=== PATIENT | female | born 1950 | race Hispanic/Latino ===

== ENCOUNTER 2018-05-03 14:16 | Inpatient (IN) | payer MEDICARE ==
[~2018-05-03] VITALS: Ht 154.9 cm; Wt 124.3 kg
[2018-05-03] MEDS ORDERED: FUROSEMIDE INJ 10 MG/ML 2 ML VIAL IV PRN (14:45)
[2018-05-03] MEDS ORDERED: SODIUM CHLORIDE 0.9% 250ML 250 ML IV ONE (14:45)
[2018-05-03 15:27] VITALS: BP 134/63
[2018-05-03 15:28] VITALS: BP 134/63
[2018-05-03 15:34] VITALS: BP 134/63
[2018-05-03 16:16] LABS: BASOPHILS % 0.2 % (0.0-1.0); EOSINOPHILS # (AUTO) 0.3 (0.0-0.4); EOSINOPHILS % 1.5 % (0.0-6.0); LYMPHOCYTES # (AUTO) 4.8 (1.0-3.2); LYMPHOCYTES % 28.2 % (18.0-39.1); MEAN CORPUSCULAR HEMOGLOBIN 23.6 pg (28-32); MEAN CORPUSCULAR HGB CONC 28.2 g/dL (31-35); MEAN CORPUSCULAR VOLUME 83.7 fL (81-99); MONOCYTES # (AUTO) 0.9 (0.2-0.8); MONOCYTES % 5.3 % (4.4-11.3); PLATELET COUNT 502 x10e3/uL (140-360); RED BLOOD COUNT 2.03 x10e6/uL (3.6-5.1); RED CELL DISTRIBUTION WIDTH 16.5 % (11.7-14.4)
[2018-05-03 16:25] LABS: CLARITY,URINE SL CLOUDY (CLEAR); COLOR,URINE YELLOW (YELLOW)
[2018-05-03 16:26] LABS: BILIRUBIN,URINE NEGATIVE (NEGATIVE); KETONES,URINE NEGATIVE (NEGATIVE); LEUKOCYTE ESTERASE ,URINE 2+ (NEGATIVE); NITRITE,URINE NEGATIVE (NEGATIVE); PROTEIN,URINE DIPSTICK 2+ (NEGATIVE); URINE UROBILINOGEN 0.2 mg/dL (0.2 - 1)
[2018-05-03 16:26] LABS: HEMOGLOBIN 4.8 g/dL (12.0-16.0)
[2018-05-03 16:38] LABS: ALBUMIN/GLOBULIN RATIO 0.7 (0.8-2.0); ANION GAP 17.7 mmol/L (8-16); CALCIUM 9.1 mg/dL (8.4-10.2); CREATININE, SERUM 1.16 mg/dL (0.57-1.11); POTASSIUM 3.7 mmol/L (3.5-5.1)
[2018-05-03 16:57] LABS: THYROID STIMULATING HORMONE 2.508 uIU/mL (0.350-4.940)
[2018-05-03 17:01] LABS: EPITHELIAL CELLS,URINE MANY /LPF; TRANSITIONAL EPI CELLS,URINE MANY
[2018-05-03 17:02] LABS: BACTERIA,URINE MODERATE /HPF; RBC,URINE 21-50 /HPF (0-5); WBC,URINE (MAN) >50 /HPF (0-5)
--- NOTE | 2018-05-03 17:55 | Diagnostic Imaging Report ---
EXAMINATION: PA and lateral views of the chest. COMPARISON: None CLINICAL HISTORY: Anemia, shortness of breath, DISCUSSION: Exam limited by soft tissue attenuation from patient's body habitus Lines/tubes: None. Lungs: Lungs are well-inflated. No definite consolidation. Pleura: There is no pleural effusion or pneumothorax. Heart and mediastinum: Enlarged cardiac silhouette. Central pulmonary venous congestion. Bones and soft tissues: No acute bony abnormalities. Degenerative changes in the thoracic spine IMPRESSION: Enlarged cardiac silhouette and central pulmonary venous congestion. No definite consolidation or effusion. Signed by: Dr. Wojciech Hernandez M.D. on 05/03/2018 5:52 PM
[2018-05-03] MEDS ORDERED: SODIUM CHLORIDE 0.9% 250ML 250 ML ONE ×2 (18:03→21:47)
[2018-05-03 19:15] VITALS: BP 132/58
[2018-05-03 19:51] LABS: EOSINOPHILS % (MANUAL) 1 % (0-7); LYMPHOCYTES % (MANUAL) 21 % (19-48); MONOCYTES % (MANUAL) 4 % (3.4-9.0); NEUTROPHILS % (MANUAL) 74 % (40-74)
[2018-05-03 19:53] LABS: POIKILOCYTOSIS SLIGHT
[2018-05-03 19:54] LABS: PLATELET ESTIMATE MODERATELY INCREASED; PLATELET MORPHOLOGY COMMENT FEW LARGE; POLYCHROMASIA FEW
[2018-05-03 21:00] VITALS: BP 132/58
[2018-05-03 22:33] VITALS: BP 123/55
[2018-05-04] VITALS: BP 118/42
[2018-05-04 05:05] LABS: BASOPHILS % 0.2 % (0.0-1.0); EOSINOPHILS # (AUTO) 0.2 (0.0-0.4); EOSINOPHILS % 1.9 % (0.0-6.0); LYMPHOCYTES # (AUTO) 2.5 (1.0-3.2); LYMPHOCYTES % 22.5 % (18.0-39.1); MEAN CORPUSCULAR HEMOGLOBIN 25.7 pg (28-32); MEAN CORPUSCULAR HGB CONC 31.2 g/dL (31-35); MEAN CORPUSCULAR VOLUME 82.2 fL (81-99); MONOCYTES # (AUTO) 0.7 (0.2-0.8); MONOCYTES % 6.1 % (4.4-11.3); NEUTROPHILS # (AUTO) 7.7 (2.1-6.9); NEUTROPHILS % 68.7 % (38.7-80.0); RED CELL DISTRIBUTION WIDTH 15.9 % (11.7-14.4)
[2018-05-04 05:17] LABS: HEMATOCRIT 18.9 % (34.2-44.1); HEMOGLOBIN 5.9 g/dL (12.0-16.0); PLATELET COUNT 371 x10e3/uL (140-360)
[2018-05-04 05:30] LABS: ALBUMIN 2.7 g/dL (3.5-5.0); ALBUMIN/GLOBULIN RATIO 0.8 (0.8-2.0); ALKALINE PHOSPHATASE 91 IU/L (40-150); ANION GAP 12.7 mmol/L (8-16); BLOOD UREA NITROGEN 16 mg/dL (7-26); BUN/CREATININE RATIO 14 (6-25); CALCIUM 8.7 mg/dL (8.4-10.2); CARBON DIOXIDE 23 mmol/L (22-29); CHLORIDE 106 mmol/L (98-107); CREATININE, SERUM 1.11 mg/dL (0.57-1.11); EST GLOMERULAR FILTRATION RATE 49 ML/MIN (60-); GLUCOSE 105 mg/dL (74-118); POTASSIUM 3.7 mmol/L (3.5-5.1); SODIUM 138 mmol/L (136-145)
[2018-05-04] MEDS ORDERED: SODIUM CHLORIDE 0.9% 250ML 250 ML IV ONE (05:30)
[2018-05-04] MEDS ORDERED: FUROSEMIDE INJ 10 MG/ML 4 ML VIAL IV ONE (05:45)
[2018-05-04 05:52] LABS: ALANINE AMINOTRANSFERASE < 6 IU/L (0-55)
[2018-05-04 08:00] VITALS: BP 116/49
[2018-05-04] MEDS: LOSARTAN POTASSIUM 100 MG TAB PO SCH (08:15)
[2018-05-04] MEDS ORDERED: SODIUM CHLORIDE 0.9% 250ML 250 ML ONE ×2 (08:41→13:22)
[2018-05-04] MEDS ORDERED: METFORMIN HCL 500 MG TAB CR PO ONE (09:00)
[2018-05-04] MEDS ORDERED: METOPROLOL SUCCINATE 50 MG TAB XL PO SCH (09:00)
[2018-05-04] MEDS: TRAMADOL HCL 50 MG TAB PO PRN (11:16)
[2018-05-04] MEDS: CEFTRIAXONE SOD 1 GM VIAL IV SCH (11:51)
--- NOTE | 2018-05-04 11:51 | History and Physical ---
This 67-year-old female patient presented with complaint of severe vaginal bleeding, blood clots and severe anemia. HISTORY OF PRESENT ILLNESS: Ms. Maria E Ware is a 67-year-old female patient with recent history of acute DVT in January. She was placed on Xarelto. The patient had presented to the office with complaint of dizziness and weakness. Blood test was done, and the patient was found to have severe anemia. The patient also had mentioned about passing blood clots and vaginal bleeding since the patient has started Xarelto. The patient had weakness, dizziness, bloody oozing. The patient also complained of knee pain. ALLERGIES: NO KNOWN DRUG ALLERGIES. The patient also has history of lymphedema and knee arthritis. PAST MEDICAL HISTORY: Hypertension, anemia, obstructive sleep apnea, vitamin D deficiency. PAST SURGICAL HISTORY: Gallbladder surgery. SOCIAL HISTORY: Denies smoking. Denies using alcohol. REVIEW OF SYSTEMS: As per history of present illness. PHYSICAL EXAMINATION GENERAL: She is a middle-aged female patient lying in bed, not in acute distress. VITAL SIGNS: Temperature 98, pulse rate 88, respirations 20, blood pressure 110/70. HEENT: Normocephalic, atraumatic. Severe pallor present. LUNGS: Bilateral equal fair air entry. No rales. No rhonchi. HEART: S1 and S2, regular. No murmur. No gallop. ABDOMEN: Soft. Bowel sounds are present. NEUROLOGIC: Nonfocal. No neurologic deficit. EXTREMITIES: Knee swelling. ADMISSION IMPRESSION AND DIAGNOSES 1. Severe anemia with hemoglobin of 4.8. 2. Vaginal bleeding. 3. Hypertension. 4. History of deep venous thrombosis. 5. Diabetes mellitus. 6. Obesity. 7. UTI PLAN: The patient will be admitted with the above diagnoses. The patient will get 4 units of packed red blood cells. Will do stool for occult blood. Will do pelvic and abdominal ultrasound. Will obtain a NEUROSURGICAL NURSE PRACTITIONER consultation. For DVT prevention, will put SCD. We have to hold off anticoagulation just for now until the patient's hemoglobin and hematocrit get stable.IV ROCEPHINE FOR UTI Job#: [id number] MH [place]
[2018-05-04 12:00] VITALS: BP 140/61
[2018-05-04 16:00] VITALS: BP 137/63
--- NOTE | 2018-05-04 17:59 | Diagnostic Imaging Report ---
HISTORY: Low hemoglobin TECHNIQUE: Selected static images from complete abdominal ultrasound provided for INTERPRETATION: COMPARISON: None. FINDINGS: Pancreas: Poorly visualized due to bowel gas. Liver: Measures 19.0 cm in sagittal plane. The echotexture is normal. No mass in the visualized portions. Portal Vein: Measures 1.0 cm. Hepatopetal flow on spectral Doppler interrogation. Biliary Tree: Normal Gallbladder: Absent. CBD: Measures 1.3 cm, although this may be the common hepatic duct the distal common bile duct was not imaged. Right Kidney: Length is 10.5 cm. Echotexture is normal. No mass or hydronephrosis. Left Kidney: Length is 10.1 cm. Echotexture is normal. No mass or hydronephrosis. Spleen: 10.8 cm in length. No evidence for mass. Aorta: Visualized portions are normal in diameter. IVC: Patent No free fluid. IMPRESSION: 1. Cholecystectomy with prominent common bile duct or common hepatic duct. No evidence of choledocholithiasis on this exam. 2. Normal splenic size. 3. Hepatomegaly. No steatosis. 4. Nonvisualization of the pancreas and limited visualization of the aorta due to bowel gas. Signed by: Dr. Luiza Champagne MD on 05/04/2018 5:56 PM
--- NOTE | 2018-05-04 18:03 | Diagnostic Imaging Report ---
Ultrasound pelvis: Transabdominal CPT code: 62639 History:Low hemoglobin, no pain Comparison: None. Technique: Images have been obtained through a distended bladder. Images are compromised due to patient's generous body habitus. Findings: Uterus: Measures 7.8 x 7.3 x 12.5 cm. The myometrial echotexture is normal. Potential fibroid in the fundus measures 3.7 x 2.5 x 5.1 m. Endometrial stripe: Not visualized Right ovary: 2.2 x 3.2 x 3.0 cm. Echotexture is normal. No evidence for mass. Left ovary: Not visualized . No free fluid in the cul-de-sac. IMPRESSION: 1. Suspected intramural fibroid as described above. 2. Nonvisualization of the endometrium and left ovary. 3. Normal right ovary. Signed by: Dr. Luiza Champagne MD on 05/04/2018 6:00 PM
[2018-05-04 20:16] VITALS: BP 120/58
[2018-05-04 20:30] VITALS: BP 120/58
[2018-05-04 20:42] LABS: HEMATOCRIT 25.5 % (34.2-44.1)
[2018-05-04 20:52] LABS: INR 1.15; PROTHROMBIN TIME 13.8 seconds (11.9-14.5)
[2018-05-04 20:53] LABS: PARTIAL THROMBOPLASTIN TIME 30.1 seconds (23.8-35.5)
[2018-05-05] VITALS (7 sets, daily range): BP systolic 105–152; BP diastolic 48–67
[2018-05-05 04:49] LABS: BASOPHILS % 0.2 % (0.0-1.0); EOSINOPHILS # (AUTO) 0.4 (0.0-0.4); EOSINOPHILS % 3.3 % (0.0-6.0); HEMATOCRIT 23.8 % (34.2-44.1); HEMOGLOBIN 7.4 g/dL (12.0-16.0); LYMPHOCYTES # (AUTO) 1.8 (1.0-3.2); LYMPHOCYTES % 16.6 % (18.0-39.1); MEAN CORPUSCULAR HEMOGLOBIN 25.2 pg (28-32); MEAN CORPUSCULAR HGB CONC 31.1 g/dL (31-35); MONOCYTES # (AUTO) 0.7 (0.2-0.8); MONOCYTES % 6.7 % (4.4-11.3); NEUTROPHILS # (AUTO) 7.9 (2.1-6.9); NEUTROPHILS % 72.7 % (38.7-80.0); PLATELET COUNT 354 x10e3/uL (140-360); RED BLOOD COUNT 2.94 x10e6/uL (3.6-5.1); RED CELL DISTRIBUTION WIDTH 16.5 % (11.7-14.4)
[2018-05-05 05:11] LABS: ALBUMIN 2.7 g/dL (3.5-5.0); ALBUMIN/GLOBULIN RATIO 0.7 (0.8-2.0); ANION GAP 13.6 mmol/L (8-16); CALCIUM 8.7 mg/dL (8.4-10.2); CREATININE, SERUM 1.03 mg/dL (0.57-1.11); POTASSIUM 3.6 mmol/L (3.5-5.1)
[2018-05-05] MEDS: LOSARTAN POTASSIUM 100 MG TAB PO SCH (08:30)
[2018-05-05] MEDS: CEFTRIAXONE SOD 1 GM VIAL IV SCH (08:30)
[2018-05-05] MEDS ORDERED: SODIUM CHLORIDE 0.9% 250ML 250 ML IV ONE (14:00)
[2018-05-05] MEDS ORDERED: FUROSEMIDE INJ 10 MG/ML 2 ML VIAL IV ONE (17:00)
[2018-05-05] MEDS ORDERED: METOPROLOL SUCCINATE 50 MG TAB XL PO SCH (21:00)
[2018-05-05] MEDS: TRAMADOL HCL 50 MG TAB PO PRN (21:45)
--- NOTE | 2018-05-05 21:54 | Consultation ---
DATE OF CONSULTATION: May 05, 2018 REASON FOR CONSULTATION: The patient is a 67-year-old para 3, with last menstrual period at age 49, who presents to the hospital with symptomatic severe anemia, vaginal bleeding, and blood clots. The bleeding started after the patient had been put on Xarelto for deep venous thrombosis in her left calf, which was diagnosed in January 2018. For approximately over the last month, she has been bleeding heavily. She did not report it to her family until approximately 9-10 days ago, when she got weak and dizzy. She stopped the Xarelto and the bleeding stopped for awhile, but then restarted for last couple of days and she was found to have a hemoglobin of 4.8 and she was transfused 4 units of blood yesterday. Her count went up to 7.4, initially 8.0, but then the repeat this morning was 7.4. She was ordered 1 more unit of blood and now, the patient is more comfortable, although she does have some bleeding off and on at this point. Patient reports her last Pap smear was 2-3 years ago and was within normal limits. She had no problems with bleeding since her last period approximately 28 years ago. PAST MEDICAL HISTORY: Remarkable for hypertension, prediabetes on metformin, knee arthritis, sleep apnea, and lymphedema for approximately 2-3 years. 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 PAST SURGICAL HISTORY: Remarkable for cholecystectomy in October 1986 and a breast biopsy. ALLERGIES: SHE STATES SHE HAS NO KNOWN DRUG ALLERGIES. SHE IS ALLERGIC TO STRAWBERRIES. CURRENT MEDICATIONS: Losartan, metoprolol, and metformin, although the patient does not recall being on the metformin at this time. SOCIAL HISTORY: She is a nonsmoker. Denies alcohol or IV drug abuse. OB HISTORY: Remarkable for 3 normal spontaneous vaginal deliveries with the deliveries of 7 lbs, 7 lbs 8 oz, and 8 lbs babies. REVIEW OF SYSTEMS: Noncontributory at this time PHYSICAL EXAM GENERAL: Her height is 61 inches. Her weight 274 lbs. VITAL SIGNS: Her temperature is 98.2, blood pressure 140/63, pulse 86, respirations 18, pulse ox 98%-99% saturation. The rest of her exam is deferred to the office as we need the appropriate equipment to do an evaluation of her female system. This will be done in the office as soon as she is discharged from the hospital. Ultrasound shows uterus measuring 12.5 x 7.8 x 7.3, which is significantly enlarged with what is thought to be a 5.1 x 3.7 x 2.5-cm fundal fibroid. The endometrium could not be well seen. The left ovary could not be well seen. The right ovary was 3.3 x 3.0 x 2.2 cm. Her latest PT 13.8, PTT 30.1. Her latest H and H after 4 units of blood was 7.4 and 23.8, and she has received 1 unit of blood since. Her glucose on admission was 130, but currently is running 100-105. Creatinine 1.03. Potassium 3.6, chloride 103, bicarb 24, sodium 137. IMPRESSION: Postmenopausal bleeding on a patient on blood thinners with a question of fundal fibroid, but need to rule out endometrial cancer and endometrial hyperplasia. PLAN: Continue your evaluation as needed. Once she is stable, we will see her in the office for endometrial biopsy. If the patient is discharged tomorrow on Monday, we will perform the endometrial biopsy in the office on Monday. Job#: [id number] CQ
[2018-05-06] VITALS: BP 112/53
[2018-05-06 04:00] VITALS: BP 131/60
[2018-05-06 05:39] LABS: ALBUMIN 2.7 g/dL (3.5-5.0); ALBUMIN/GLOBULIN RATIO 0.7 (0.8-2.0); ANION GAP 13.9 mmol/L (8-16); CREATININE, SERUM 1.11 mg/dL (0.57-1.11); POTASSIUM 3.9 mmol/L (3.5-5.1)
[2018-05-06 06:41] LABS: BASOPHILS % 0.2 % (0.0-1.0); EOSINOPHILS # (AUTO) 0.4 (0.0-0.4); HEMATOCRIT 26.1 % (34.2-44.1); HEMOGLOBIN 8.1 g/dL (12.0-16.0); LYMPHOCYTES # (AUTO) 2.1 (1.0-3.2); LYMPHOCYTES % 16.8 % (18.0-39.1); MEAN CORPUSCULAR HEMOGLOBIN 25.6 pg (28-32); MEAN CORPUSCULAR VOLUME 82.3 fL (81-99); MONOCYTES # (AUTO) 0.8 (0.2-0.8); MONOCYTES % 6.5 % (4.4-11.3); NEUTROPHILS # (AUTO) 9.1 (2.1-6.9); PLATELET COUNT 349 x10e3/uL (140-360); RED BLOOD COUNT 3.17 x10e6/uL (3.6-5.1); RED CELL DISTRIBUTION WIDTH 17.2 % (11.7-14.4)
[2018-05-06 08:00] VITALS: BP 134/60
[2018-05-06 08:15] VITALS: BP 134/62
[2018-05-06] MEDS: LOSARTAN POTASSIUM 100 MG TAB PO SCH (08:18)
[2018-05-06] MEDS: TRAMADOL HCL 50 MG TAB PO PRN ×2 (08:18→17:00)
[2018-05-06] MEDS: CEFTRIAXONE SOD 1 GM VIAL IV SCH (08:18)
[2018-05-06 11:53] LABS: % IRON SATURATION 6 % (15-50); IRON 23 ug/dL (50-170); TOTAL IRON BINDING CAPACITY 406 ug/dL (261-478); TRANSFERRIN 290 mg/dL (180-382)
[2018-05-06 12:00] VITALS: BP 126/57
[2018-05-06] MEDS ORDERED: IRON SUCROSE 200 MG in SODIUM CHLORIDE 0.9% 100 ML 100 ML IV ONE (13:00)
[2018-05-06 16:00] VITALS: BP 127/60
[2018-05-06] MEDS ORDERED: FOLIC ACID1 MG PO (16:42)
[2018-05-06] MEDS ORDERED: FERROUS SULFAT325 MG PO (16:43)
[2018-05-06] MEDS ORDERED: ULTRAM50 MG PO (16:44)
--- NOTE | 2018-05-06 19:08 | Consultation ---
DATE OF CONSULTATION: May 06, 2018 This is a very pleasant 67-year-old woman admitted to [facility] because of severe vaginal bleeding without any anemia. The bleeding is clearly exacerbated by her taking Xarelto, and anticoagulant for her DVT recently. The patient was admitted from Dr. Peters's office who noticed she was severely anemic when she went to his office on Monday. The patient was transfused 2 units of blood prior to me seeing her and she symptomatically feels better. Gynecology consult has seen her and scheduled for her to have an outpatient pelvic examination and endometrial biopsy tomorrow, Monday. PAST MEDICAL HISTORY: Hypertension, history of COPD, history of vitamin D deficiency. PAST SURGICAL HISTORY: History of cholecystectomy. ALLERGIES: NO KNOWN DRUG ALLERGIES. PHYSICAL EXAMINATION GENERAL: An elderly, obese woman in no acute distress. VITAL SIGNS: Stable. HEENT: Show chronic alopecia. NECK: Supple without JVD. CHEST: Clear. HEART: Sounds are benign. ABDOMEN: Soft. Liver is not enlarged. EXTREMITIES: Show no cyanosis, clubbing, or edema. ASSESSMENT AND PLAN: Severe iron deficiency and anemia with microcytosis. The patient is clearly a candidate for transfusion and iron deficiency therapy. However, I would like to await her pelvic examination and endometrial biopsy before completing her treatment. We will give her one dose of iron IV prior to discharge for now. Thank you very much, Dr. Trell Peters, for asking me to see Ms. Maria E Ware. I will follow her with you. CAMREN ZAMORA MD Job#: [id number] GH
--- NOTE | 2018-05-06 22:40 | Discharge Summary ---
She is a 67-year-old female patient presented with complaint of severe anemia and weakness. ADMITTING IMPRESSION AND DIAGNOSES: Severe anemia with gynecological bleeding, vaginal bleeding which was chronic bleeding which has started after anticoagulation with Xarelto. HOSPITAL COURSE SUMMARY: Patient's hemoglobin had dropped from 11.5 to 4.8. Patient was requiring multiple blood transfusions, 5 units of blood and IV iron. Patient had E MARKETING SPECIALIST, hematology consultation done. Dr. Herman has seen the patient and he is going to do endometrial biopsy as outpatient tomorrow for uterine fibroid, possible fibroid in the uterus. Patient was given IV iron. Patient has venous Doppler done which was negative preliminary report. Now upon stabilization, patient's hemoglobin is 8.1 and hematocrit 26.1, and platelets 349,000. Pro time is 1.11. Patient will be discharged home and patient will be advised to take iron, folic acid, and not to take any anticoagulation or aspirin for now. SPENCER TRIPP MD Job#: [id number]
== END 2018-05-06 17:40 | disposition home or self-care (01) | DRG 812 ==
LOC: IMCU 14:16 → MED/SURG2 05-04 15:50
PROVIDERS: ADMIT Internal Medicine; ATTEND Internal Medicine
PROC: 30233N1 Transfusion of Nonautologous Red Blood Cells into Peripheral Vein, Percutaneous Approach (ICD-10-PCS; principal; 2018-05-03)
DX: D50.0 Iron deficiency anemia secondary to blood loss (chronic) (principal); Z68.42 Body mass index [BMI] 45.0-49.9, adult; N95.0 Postmenopausal bleeding; I10 Essential (primary) hypertension; E11.9 Type 2 diabetes mellitus without complications; E66.9 Obesity, unspecified; Z86.718 Personal history of other venous thrombosis and embolism; Z79.01 Long term (current) use of anticoagulants; G47.33 Obstructive sleep apnea (adult) (pediatric); E55.9 Vitamin D deficiency, unspecified; Z91.018 Allergy to other foods; D25.9 Leiomyoma of uterus, unspecified
CPT/HCPCS: 36415; 36430; 71046; 76700; 76856; 80053; 81001; 82270; 82948; 83520; 83540; 84443; 84466; 85014; 85018; 85025; 85610; 85730; 86850; 86900; 86920; 87086; 93970; J0696; J1756; J1940; J7050; P9016

== ENCOUNTER → 2018-05-15 | Outpatient (CLI) | payer MEDICARE ==
[~2018-05-15] MED LIST: FERROUS SULFAT325 MG PO; FOLIC ACID1 MG PO; GADOBENATE DIMEGLUMINE 1 ML IV ONE; ULTRAM50 MG PO
== END ==
LOC: MRI 13:46
PROVIDERS: ATTEND Internal Medicine
DX: D62 Acute posthemorrhagic anemia (principal); N95.0 Postmenopausal bleeding; N85.9 Noninflammatory disorder of uterus, unspecified
CPT/HCPCS: 72197

== ENCOUNTER 2021-03-03 12:34 | Inpatient (IN) | payer MEDICARE, OTHER ==
[~2021-03-03] VITALS: Ht 157.5 cm; Wt 92.1 kg
[~2021-03-03 12:34] MED LIST changes: -GADOBENATE DIMEGLUMINE 1 ML IV ONE
[2021-03-03] MEDS ORDERED: SODIUM CHLORIDE 0.9% 1000ML 1,000 ML IV STA (12:43)
[2021-03-03] MEDS ORDERED: ASPIRIN 81 MG CHEW TAB PO ONE (12:45)
[2021-03-03 13:17] LABS: BASOPHILS % 0.5 % (0.0-1.0); EOSINOPHILS # (AUTO) 0.1 (0.0-0.4); EOSINOPHILS % 3.5 % (0.0-6.0); HEMATOCRIT 32.6 % (34.2-44.1); HEMOGLOBIN 10.5 g/dL (12.0-16.0); LYMPHOCYTES # (AUTO) 0.7 (1.0-3.2); LYMPHOCYTES % 18.7 % (18.0-39.1); MEAN CORPUSCULAR HEMOGLOBIN 30.9 pg (28-32); MEAN CORPUSCULAR HGB CONC 32.2 g/dL (31-35); MEAN CORPUSCULAR VOLUME 95.9 fL (81-99); MONOCYTES # (AUTO) 0.4 (0.2-0.8); MONOCYTES % 9.6 % (4.4-11.3); NEUTROPHILS # (AUTO) 2.7 (2.1-6.9); NEUTROPHILS % 67.4 % (38.7-80.0); PLATELET COUNT 172 x10e3/uL (140-360); RED CELL DISTRIBUTION WIDTH 18.6 % (11.7-14.4)
[2021-03-03 13:36] LABS: ALBUMIN 2.6 g/dL (3.5-5.0); ALBUMIN/GLOBULIN RATIO 0.6 (0.8-2.0); ANION GAP 20.2 mmol/L (8-16); CALCIUM 7.9 mg/dL (8.4-10.2); CREATININE, SERUM 1.02 mg/dL (0.57-1.11); POTASSIUM 3.2 mmol/L (3.5-5.1)
[2021-03-03 13:43] LABS: CREATINE KINASE MB 0.5 ng/mL (0-5.0)
[2021-03-03] MEDS ORDERED: DEXTROSE 5%/0.45% SOD CHL 1,000 ML IV STA (14:35)
[2021-03-03] MEDS: SODIUM CHLORIDE 0.9% 1000ML 1,000 ML IV SCH ×2 (14:45→22:45)
[2021-03-03] MEDS ORDERED: D5.45%NS/KCL 20MEQ 1,000 ML IV ONE (14:45)
[2021-03-03 17:04] VITALS: BP 102/56
[2021-03-03] MEDS ORDERED: ELIQUIS5 MG PO (17:04)
[2021-03-03 17:11] VITALS: BP 102/56
[2021-03-03 17:14] VITALS: BP 102/56
[2021-03-03] MEDS ORDERED: DIOVAN80 MG PO (17:21)
[2021-03-03] MEDS ORDERED: LEVOTHYROXINE50 MCG PO (17:22)
[2021-03-03] MEDS ORDERED: CARVEDILOL3.125 MG PO (17:22)
[2021-03-03] MEDS ORDERED: ZOFRAN4 MG PO (17:23)
[2021-03-03] MEDS ORDERED: BENADRYL25 M1 PO (17:23)
[2021-03-03 20:50] VITALS: BP 140/72
[2021-03-03 21:00] VITALS: BP 140/72
[2021-03-04] VITALS (9 sets, daily range): BP systolic 121–135; BP diastolic 46–58
[2021-03-04] MEDS: METOCLOPRAMIDE HCL 10 MG/2ML VIAL IV SCH ×3 (00:30→13:30)
[2021-03-04] MEDS ORDERED: POTASSIUM CHLORIDE 20 MEQ TAB CR PO PRN (00:45)
[2021-03-04] MEDS ORDERED: DOCUSATE SODIUM 100 MG CAP PO PRN (00:45)
[2021-03-04] MEDS ORDERED: BENZONATATE 100 MG CAP PO PRN (00:45)
[2021-03-04] MEDS ORDERED: SIMETHICONE 80 MG CHEW PO PRN (00:45)
[2021-03-04] MEDS ORDERED: ACETAMINOPHEN 325 MG TAB PO PRN (00:45)
[2021-03-04] MEDS ORDERED: DEXTROSE 50% SYRINGE 50 ML IV PRN (00:45)
[2021-03-04] MEDS ORDERED: DIPHENHYDRAMINE HCL 25 MG CAP PO PRN (00:45)
[2021-03-04] MEDS: D5NS/KCL 20MEQ 1,000 ML IV SCH ×3 (00:45→21:10)
[2021-03-04] MEDS: LEVOTHYROXINE SODIUM 25 MCG TABLET PO SCH (06:30)
[2021-03-04 06:47] LABS: BASOPHILS % 0.3 % (0.0-1.0); EOSINOPHILS # (AUTO) 0.2 (0.0-0.4); EOSINOPHILS % 5.7 % (0.0-6.0); HEMATOCRIT 28.7 % (34.2-44.1); HEMOGLOBIN 9.1 g/dL (12.0-16.0); LYMPHOCYTES # (AUTO) 0.8 (1.0-3.2); LYMPHOCYTES % 22.4 % (18.0-39.1); MEAN CORPUSCULAR HEMOGLOBIN 30.4 pg (28-32); MEAN CORPUSCULAR HGB CONC 31.7 g/dL (31-35); MONOCYTES # (AUTO) 0.4 (0.2-0.8); MONOCYTES % 11.3 % (4.4-11.3); PLATELET COUNT 152 x10e3/uL (140-360); RED BLOOD COUNT 2.99 x10e6/uL (3.6-5.1); RED CELL DISTRIBUTION WIDTH 18.5 % (11.7-14.4)
[2021-03-04] MEDS: APIXAB 2.5 MG TABLET PO SCH ×2 (06:51→15:44)
[2021-03-04 07:09] LABS: ALANINE AMINOTRANSFERASE 7 IU/L (0-55); ALBUMIN 2.2 g/dL (3.5-5.0); ALBUMIN/GLOBULIN RATIO 0.6 (0.8-2.0); ALKALINE PHOSPHATASE 61 IU/L (40-150); BLOOD UREA NITROGEN 9 mg/dL (7-26); BUN/CREATININE RATIO 11 (6-25); CALCIUM 7.3 mg/dL (8.4-10.2); CARBON DIOXIDE 25 mmol/L (22-29); CHLORIDE 102 mmol/L (98-107); CREATININE, SERUM 0.82 mg/dL (0.57-1.11); EST GLOMERULAR FILTRATION RATE > 60 ML/MIN (60-); GLUCOSE 90 mg/dL (74-118); SODIUM 138 mmol/L (136-145)
[2021-03-04 07:29] LABS: MAGNESIUM 1.1 MG/DL (1.3-2.1)
[2021-03-04] MEDS ORDERED: PANTOPRAZOLE SOD 40 MG TABEC PO SCH (07:30)
[2021-03-04 07:39] LABS: THYROID STIMULATING HORMONE 6.107 uIU/mL (0.350-4.940)
[2021-03-04] MEDS: CARVEDILOL 3.125 MG TAB PO SCH ×2 (08:49→15:44)
[2021-03-04] MEDS: FERROUS SULFATE 325 MG TAB PO SCH (08:50)
[2021-03-04] MEDS: VALSARTAN 80 MG TAB PO SCH (08:50)
[2021-03-04] MEDS: FOLIC ACID 1 MG TAB PO SCH (08:50)
[2021-03-04] MEDS: MEGACE 400MG/ 10ML CUP PO SCH (08:50)
[2021-03-04] MEDS ORDERED: POTASSIUM CHLORIDE 20MEQ/100ML 200 ML IV ONE (09:00)
[2021-03-04] MEDS ORDERED: MAGNESIUM SULFATE 2GM/50ML 50 ML IV ONE (09:00)
[2021-03-04] MEDS ORDERED: SODIUM PHOSPHATE IN 0.9 % NACL 15 MMOL in SODIUM CHLORIDE 0.9% 250ML 250 ML IV ONE ×2 (13:30)
[2021-03-04] MEDS ORDERED: KETAMINE HCL INJ 50 MG/ML 10 ML VIAL ONE (13:35)
[2021-03-04] MEDS ORDERED: FENTANYL CITRATE/PF 100MCG/2 ML INJ ONE (13:35)
[2021-03-04] MEDS ORDERED: PROPOFOL IV EMULSION 10 MG/ML 20 ML VIAL ONE (18:11)
[2021-03-04] MEDS ORDERED: POVIDONE IODINE 0.05% 0.05 % ML PO ONE (18:11)
[2021-03-04] MEDS ORDERED: LIDOCAINE HCL 2% LOCAL INJ 5 ML SDV VIAL INJ ONE (18:11)
[2021-03-04] MEDS ORDERED: METOCLOPRAMIDE HCL 10 MG/2ML VIAL IV SCH (21:00)
[2021-03-05] VITALS (8 sets, daily range): BP systolic 119–150; BP diastolic 56–68
[2021-03-05] MEDS: D5NS/KCL 20MEQ 1,000 ML IV SCH ×2 (06:20→17:11)
[2021-03-05] MEDS: METOCLOPRAMIDE HCL 10 MG/2ML VIAL IV SCH ×4 (06:20→23:45)
[2021-03-05] MEDS: LEVOTHYROXINE SODIUM 25 MCG TABLET PO SCH (06:20)
[2021-03-05 06:39] LABS: BASOPHILS % 0.3 % (0.0-1.0); EOSINOPHILS # (AUTO) 0.3 (0.0-0.4); EOSINOPHILS % 7.2 % (0.0-6.0); HEMATOCRIT 29.6 % (34.2-44.1); HEMOGLOBIN 9.5 g/dL (12.0-16.0); LYMPHOCYTES # (AUTO) 0.7 (1.0-3.2); LYMPHOCYTES % 20.9 % (18.0-39.1); MEAN CORPUSCULAR HEMOGLOBIN 30.8 pg (28-32); MEAN CORPUSCULAR HGB CONC 32.1 g/dL (31-35); MEAN CORPUSCULAR VOLUME 96.1 fL (81-99); MONOCYTES # (AUTO) 0.4 (0.2-0.8); MONOCYTES % 11.5 % (4.4-11.3); NEUTROPHILS # (AUTO) 2.1 (2.1-6.9); NEUTROPHILS % 59.8 % (38.7-80.0); PLATELET COUNT 163 x10e3/uL (140-360); RED BLOOD COUNT 3.08 x10e6/uL (3.6-5.1); RED CELL DISTRIBUTION WIDTH 18.5 % (11.7-14.4)
[2021-03-05 06:54] LABS: CHOL/HDL RATIO 6.2 (3.0-3.6)
[2021-03-05 07:02] LABS: ALANINE AMINOTRANSFERASE 8 IU/L (0-55); ALBUMIN 2.2 g/dL (3.5-5.0); ALBUMIN/GLOBULIN RATIO 0.6 (0.8-2.0); ALKALINE PHOSPHATASE 68 IU/L (40-150); ANION GAP 12.4 mmol/L (8-16); BLOOD UREA NITROGEN 5 mg/dL (7-26); BUN/CREATININE RATIO 7 (6-25); CALCIUM 7.1 mg/dL (8.4-10.2); CARBON DIOXIDE 24 mmol/L (22-29); CHLORIDE 107 mmol/L (98-107); CREATININE, SERUM 0.68 mg/dL (0.57-1.11); EST GLOMERULAR FILTRATION RATE > 60 ML/MIN (60-); GLUCOSE 112 mg/dL (74-118); POTASSIUM 3.4 mmol/L (3.5-5.1); SODIUM 140 mmol/L (136-145)
[2021-03-05 07:14] LABS: THYROID STIMULATING HORMONE 5.612 uIU/mL (0.350-4.940)
[2021-03-05] MEDS ORDERED: ONDANSETRON HCL INJ 2MG/ML 2ML 2 MG/ML VIAL IV PRN (09:45)
[2021-03-05] MEDS: VALSARTAN 80 MG TAB PO SCH (10:52)
[2021-03-05] MEDS: FOLIC ACID 1 MG TAB PO SCH (10:52)
[2021-03-05] MEDS: FERROUS SULFATE 325 MG TAB PO SCH (10:52)
[2021-03-05] MEDS: CARVEDILOL 3.125 MG TAB PO SCH ×2 (10:52→17:12)
[2021-03-05] MEDS: APIXAB 2.5 MG TABLET PO SCH ×2 (10:52→17:12)
[2021-03-05] MEDS: MEGACE 400MG/ 10ML CUP PO SCH (10:53)
[2021-03-05] MEDS: MEGESTROL ACETATE 40 MG TAB PO SCH ×3 (12:39→21:44)
[2021-03-05] MEDS: HYDROCODONE/APAP 5MG-325MG TAB PO PRN (23:08)
[2021-03-06] VITALS (8 sets, daily range): BP systolic 115–148; BP diastolic 52–81
[2021-03-06] MEDS ORDERED: METOCLOPRAMIDE HCL 10 MG/2ML VIAL IV ONE (02:00)
[2021-03-06 02:21] LABS: % IRON SATURATION 24 % (15-50); IRON 37 ug/dL (50-170); TOTAL IRON BINDING CAPACITY 153 ug/dL (261-478); TRANSFERRIN 109 mg/dL (180-382)
[2021-03-06 02:32] LABS: AMYLASE 34 U/L (25-125); LIPASE 35 U/L (8-78)
[2021-03-06] MEDS: D5NS/KCL 20MEQ 1,000 ML IV SCH ×3 (03:00→22:45)
[2021-03-06] MEDS: METOCLOPRAMIDE HCL 10 MG/2ML VIAL IV SCH ×3 (06:22→18:33)
[2021-03-06] MEDS: FERROUS SULFATE 325 MG TAB PO SCH (09:20)
[2021-03-06] MEDS: APIXAB 2.5 MG TABLET PO SCH ×2 (09:20→18:27)
[2021-03-06] MEDS: CARVEDILOL 3.125 MG TAB PO SCH ×2 (09:20→18:27)
[2021-03-06] MEDS: VALSARTAN 80 MG TAB PO SCH (09:20)
[2021-03-06] MEDS: FOLIC ACID 1 MG TAB PO SCH (09:21)
[2021-03-06] MEDS: MEGESTROL ACETATE 40 MG TAB PO SCH ×4 (09:21→21:21)
[2021-03-06] MEDS: BALSAM PERU/CASTOR OIL 60 GM OINT...G. TP SCH (09:21)
[2021-03-06] MEDS: HYDROCODONE/APAP 5MG-325MG TAB PO PRN (10:26)
[2021-03-06 16:09] LABS: PHOSPHORUS 1.3 MG/DL (2.3-4.7)
[2021-03-06 16:18] LABS: MAGNESIUM 1.1 MG/DL (1.3-2.1)
[2021-03-06] MEDS ORDERED: MAGNESIUM SULFATE 2GM/50ML 50 ML IV ONE (17:45)
[2021-03-06] MEDS ORDERED: SODIUM PHOSPHATE IN 0.9 % NACL 30 MMOL in SODIUM CHLORIDE 0.9% 250ML 250 ML IV ONE ×2 (17:45)
[2021-03-07] MEDS: METOCLOPRAMIDE HCL 10 MG/2ML VIAL IV SCH ×3 (00:03→12:19)
[2021-03-07 06:45] LABS: MAGNESIUM 1.5 MG/DL (1.3-2.1); PHOSPHORUS 3.1 MG/DL (2.3-4.7)
[2021-03-07] MEDS: D5NS/KCL 20MEQ 1,000 ML IV SCH (06:57)
[2021-03-07] MEDS: MEGESTROL ACETATE 40 MG TAB PO SCH (10:56)
[2021-03-07] MEDS: FOLIC ACID 1 MG TAB PO SCH (10:57)
[2021-03-07] MEDS: FERROUS SULFATE 325 MG TAB PO SCH (10:57)
[2021-03-07] MEDS: CARVEDILOL 3.125 MG TAB PO SCH (10:58)
[2021-03-07] MEDS: APIXAB 2.5 MG TABLET PO SCH (10:58)
[2021-03-07] MEDS: VALSARTAN 80 MG TAB PO SCH (10:58)
[2021-03-07] MEDS: BALSAM PERU/CASTOR OIL 60 GM OINT...G. TP SCH (10:59)
[2021-03-07 11:48] VITALS: BP 136/63
[2021-03-07] MEDS ORDERED: HEPARIN 500 UNITS/5ML MDV INJ ONE ×2 (15:00)
[2021-03-07] MEDS ORDERED: REGLAN5 MG PO (15:18)
[2021-03-07] MEDS ORDERED: PANTOPRAZOLE SO40 MG PO (15:19)
[2021-03-07] MEDS ORDERED: REMERON15 MG PO (15:20)
== END 2021-03-07 16:00 | disposition home or self-care (01) | DRG 312 ==
LOC: ER 12:45 → ERHOLD 14:34 → MED/SURG 16:11 → OBSVTOIN 03-05 10:33
PROVIDERS: ADMIT Internal Medicine; ATTEND Internal Medicine
PROC: 0DB68ZX Excision of Stomach, Via Natural or Artificial Opening Endoscopic, Diagnostic (ICD-10-PCS; principal; 2021-03-04 16:00)
PROC: 0D758ZZ Dilation of Esophagus, Via Natural or Artificial Opening Endoscopic (ICD-10-PCS; 2021-03-04 16:00)
DX: R55 Syncope and collapse (principal); E44.0 Moderate protein-calorie malnutrition; R13.10 Dysphagia, unspecified; I10 Essential (primary) hypertension; E78.5 Hyperlipidemia, unspecified; E66.9 Obesity, unspecified; G47.33 Obstructive sleep apnea (adult) (pediatric); Z86.711 Personal history of pulmonary embolism; Z86.718 Personal history of other venous thrombosis and embolism; Z68.37 Body mass index [BMI] 37.0-37.9, adult; C55 Malignant neoplasm of uterus, part unspecified; R53.81 Other malaise; E86.0 Dehydration; K20.90 Esophagitis, unspecified without bleeding; K29.70 Gastritis, unspecified, without bleeding; K22.2 Esophageal obstruction; Z79.01 Long term (current) use of anticoagulants
CPT/HCPCS: 36415; 43239; 43450; 70450; 71045; 80053; 80061; 82150; 82550; 82553; 82607; 82746; 83036; 83540; 83690; 83735; 84100; 84132; 84443; 84466; 84484; 85025; 85045; 88305; 88312; 93005; 93306; 93880; 99251; 99284; G0378; J2001; J2405; J2765; J3010; J3475; J3480; J7030; J7050

== ENCOUNTER 2021-03-30 19:43 | Inpatient (IN) | payer MEDICARE, OTHER ==
[~2021-03-30] VITALS: Ht 154.9 cm; Wt 112.5 kg
[~2021-03-30 19:43] MED LIST changes: +BENADRYL25 M1 PO; +CARVEDILOL3.125 MG PO; +DIOVAN80 MG PO; +ELIQUIS5 MG PO; +LEVOTHYROXINE50 MCG PO; +PANTOPRAZOLE SO40 MG PO; +REGLAN5 MG PO; +REMERON15 MG PO; +ZOFRAN4 MG PO
[2021-03-30] MEDS ORDERED: SODIUM CHLORIDE 0.9% 1000ML 1,000 ML IV SCH (20:00)
[2021-03-30] MEDS ORDERED: SODIUM CHLORIDE 0.9% 1000ML 1,000 ML ONE (20:11)
[2021-03-30 20:19] LABS: BASOPHILS % 0.3 % (0.0-1.0); EOSINOPHILS # (AUTO) 0.2 (0.0-0.4); EOSINOPHILS % 2.1 % (0.0-6.0); HEMATOCRIT 23.2 % (34.2-44.1); HEMOGLOBIN 7.5 g/dL (12.0-16.0); LYMPHOCYTES # (AUTO) 0.9 (1.0-3.2); LYMPHOCYTES % 11.9 % (18.0-39.1); MEAN CORPUSCULAR HEMOGLOBIN 30.9 pg (28-32); MEAN CORPUSCULAR HGB CONC 32.3 g/dL (31-35); MEAN CORPUSCULAR VOLUME 95.5 fL (81-99); MONOCYTES # (AUTO) 0.4 (0.2-0.8); MONOCYTES % 5.2 % (4.4-11.3); NEUTROPHILS # (AUTO) 5.7 (2.1-6.9); NEUTROPHILS % 79.7 % (38.7-80.0); PLATELET COUNT 200 x10e3/uL (140-360); RED BLOOD COUNT 2.43 x10e6/uL (3.6-5.1); RED CELL DISTRIBUTION WIDTH 17.2 % (11.7-14.4)
[2021-03-30 20:30] LABS: CLARITY,URINE CLOUDY (CLEAR); COLOR,URINE YELLOW (YELLOW); KETONES,URINE TRACE (NEGATIVE); LEUKOCYTE ESTERASE ,URINE MODERATE (NEGATIVE); NITRITE,URINE NEGATIVE (NEGATIVE); PROTEIN,URINE DIPSTICK TRACE (NEGATIVE); URINE UROBILINOGEN 0.2 mg/dL (0.2 - 1)
[2021-03-30 20:34] LABS: ALBUMIN 2.2 g/dL (3.5-5.0); ALBUMIN/GLOBULIN RATIO 0.5 (0.8-2.0); ANION GAP 17.1 mmol/L (8-16); CREATININE, SERUM 2.41 mg/dL (0.57-1.11); POTASSIUM 3.1 mmol/L (3.5-5.1)
[2021-03-30 20:42] LABS: AMORPHOUS SEDIMENT,URINE MODERATE (FEW); BACTERIA,URINE MANY /HPF
[2021-03-30 20:42] LABS: B-TYPE NATRIURETIC PEPTIDE2 108.4 pg/mL (0-100)
[2021-03-30] MEDS: CEFEPIME 1 GM in SODIUM CHLORIDE 0.9% 50ML 50 ML IV SCH (20:45)
[2021-03-30] MEDS ORDERED: MECLIZINE HCL12.5 MG PO (20:56)
[2021-03-30] MEDS ORDERED: LACTATED RINGER'S 1,000 ML INJ ONE (21:15)
[2021-03-31] VITALS (8 sets, daily range): BP systolic 97–119; BP diastolic 51–59
[2021-03-31] MEDS ORDERED: POTASSIUM CHLORIDE 20 MEQ TAB CR PO STA (01:25)
[2021-03-31] MEDS ORDERED: HYDRALAZINE HCL 20 MG/ML VIAL IV PRN (01:30)
[2021-03-31] MEDS ORDERED: ALBUTEROL/IPRATROPIUM 3 ML NEB NEB PRN (01:30)
[2021-03-31] MEDS ORDERED: DEXTROSE 50% SYRINGE 50 ML IV PRN (01:30)
[2021-03-31] MEDS ORDERED: POTASSIUM CHLORIDE 20 MEQ TAB CR PO PRN (01:30)
[2021-03-31] MEDS ORDERED: DOCUSATE SODIUM 100 MG CAP PO PRN (01:30)
[2021-03-31] MEDS ORDERED: VANCOMYCIN 1GM/NS 250 ML 250 ML IV ONE (01:30)
[2021-03-31] MEDS ORDERED: DIPHENHYDRAMINE HCL 25 MG CAP PO PRN (01:30)
[2021-03-31] MEDS ORDERED: HYDROCODONE/APAP 5MG-325MG TAB PO PRN (01:30)
[2021-03-31] MEDS ORDERED: BENZONATATE 100 MG CAP PO PRN (01:30)
[2021-03-31] MEDS ORDERED: MELATONIN 5 MG TABLET PO PRN (01:30)
[2021-03-31] MEDS ORDERED: SODIUM CHLORIDE 0.9% 250ML 250 ML IV ONE (01:30)
[2021-03-31] MEDS ORDERED: ACETAMINOPHEN 325 MG TAB PO PRN (01:30)
[2021-03-31] MEDS ORDERED: Vancomycin IV 1 GM in SODIUM CHLORIDE 0.9% 250ML 250 ML IV ONE (01:45)
[2021-03-31] MEDS: SODIUM CHLORIDE 0.9% 1000ML 1,000 ML IV SCH ×4 (02:51→23:02)
[2021-03-31] MEDS: MIDODRINE 2.5 MG TAB PO SCH ×4 (02:52→16:00)
[2021-03-31] MEDS: ONDANSETRON HCL INJ 2MG/ML 2ML 2 MG/ML VIAL IV PRN ×2 (02:52→18:20)
[2021-03-31] MEDS ORDERED: POTASSIUM CHLORIDE 20MEQ/100ML 100 ML IV SCH (04:30)
[2021-03-31] MEDS ORDERED: POTASSIUM CHLORIDE 20MEQ/100ML 100 ML IV ONE ×2 (04:45→06:45)
[2021-03-31] MEDS ORDERED: PANTOPRAZOLE SOD 40 MG TABEC PO SCH (07:30)
[2021-03-31] MEDS: CEFEPIME 1 GM in SODIUM CHLORIDE 0.9% 50ML 50 ML IV SCH ×2 (11:31→20:52)
[2021-03-31] MEDS ORDERED: SODIUM CHLORIDE 0.9% 250ML 250 ML ONE ×2 (11:53→13:41)
[2021-03-31] MEDS ORDERED: MECLIZINE HCL 12.5 MG TAB PO PRN (13:45)
[2021-03-31 16:57] LABS: BASOPHILS % 0.4 % (0.0-1.0); EOSINOPHILS # (AUTO) 0.2 (0.0-0.4); EOSINOPHILS % 2.2 % (0.0-6.0); HEMATOCRIT 28.7 % (34.2-44.1); HEMOGLOBIN 9.3 g/dL (12.0-16.0); LYMPHOCYTES # (AUTO) 0.8 (1.0-3.2); LYMPHOCYTES % 9.9 % (18.0-39.1); MEAN CORPUSCULAR HEMOGLOBIN 30.5 pg (28-32); MEAN CORPUSCULAR HGB CONC 32.4 g/dL (31-35); MEAN CORPUSCULAR VOLUME 94.1 fL (81-99); MONOCYTES # (AUTO) 0.3 (0.2-0.8); MONOCYTES % 4.4 % (4.4-11.3); NEUTROPHILS # (AUTO) 6.4 (2.1-6.9); NEUTROPHILS % 82.2 % (38.7-80.0); PLATELET COUNT 178 x10e3/uL (140-360); RED BLOOD COUNT 3.05 x10e6/uL (3.6-5.1); RED CELL DISTRIBUTION WIDTH 16.1 % (11.7-14.4)
[2021-03-31] MEDS ORDERED: ENOXAPARIN SOD INJ 40 MG/0.4 ML SYR SC SCH (17:00)
[2021-03-31] MEDS ORDERED: APIXAB 2.5 MG TABLET PO SCH (17:00)
[2021-03-31] MEDS ORDERED: ENOXAPARIN 30 MG/0.3 ML SYR SC SCH (17:00)
[2021-03-31 17:11] LABS: ANION GAP 17.6 mmol/L (8-16); CALCIUM 7.4 mg/dL (8.4-10.2); CREATININE, SERUM 1.71 mg/dL (0.57-1.11); POTASSIUM 3.6 mmol/L (3.5-5.1)
[2021-03-31] MEDS: MIRTAZAPINE 15 MG TAB PO SCH (20:53)
[2021-04-01] VITALS (8 sets, daily range): BP systolic 92–133; BP diastolic 49–64
[2021-04-01 00:53] LABS: FERRITIN 945.64 ng/mL (4.63-204.00)
[2021-04-01] MEDS ORDERED: METOCLOPRAMIDE HCL 10 MG/2ML VIAL IV STA (01:01)
[2021-04-01 01:28] LABS: INR 1.19; PROTHROMBIN TIME 15.8 seconds (11.9-14.5)
[2021-04-01 01:29] LABS: PARTIAL THROMBOPLASTIN TIME 30.9 seconds (23.8-35.5)
[2021-04-01] MEDS: METOCLOPRAMIDE HCL 10 MG/2ML VIAL IV SCH ×3 (06:12→17:44)
[2021-04-01 06:27] LABS: PHOSPHORUS 2.2 MG/DL (2.3-4.7)
[2021-04-01 06:36] LABS: MAGNESIUM 1.1 MG/DL (1.3-2.1)
[2021-04-01 06:48] LABS: THYROID STIMULATING HORMONE 8.244 uIU/mL (0.350-4.940)
[2021-04-01] MEDS: MIDODRINE 2.5 MG TAB PO SCH ×3 (08:00→16:00)
[2021-04-01] MEDS: CEFEPIME 1 GM in SODIUM CHLORIDE 0.9% 50ML 50 ML IV SCH ×2 (09:00→21:17)
[2021-04-01] MEDS ORDERED: MAGNESIUM SULFATE 2GM/50ML 100 ML IV ONE (09:30)
[2021-04-01] MEDS ORDERED: MAGNESIUM SULFATE 2GM/50ML 200 ML IV ONE (09:30)
[2021-04-01] MEDS: SODIUM BICARBONATE 650 MG TAB PO SCH ×2 (13:00→17:00)
[2021-04-01] MEDS ORDERED: SODIUM PHOSPHATE 15 MMOL in SODIUM CHLORIDE 0.9% 250ML 250 ML IV ONE (13:00)
[2021-04-01] MEDS: SODIUM BICARBONATE 8.4% SYRING 150 ML in DEXTROSE 5% 1,000 ML IV SCH ×2 (14:00→22:12)
[2021-04-01 17:12] LABS: ANION GAP 12.8 mmol/L (8-16); CALCIUM 7.6 mg/dL (8.4-10.2); CREATININE, SERUM 1.34 mg/dL (0.57-1.11); MAGNESIUM 2.5 MG/DL (1.3-2.1); POTASSIUM 3.8 mmol/L (3.5-5.1)
[2021-04-01] MEDS: MIRTAZAPINE 15 MG TAB PO SCH (21:17)
[2021-04-02] VITALS (7 sets, daily range): BP systolic 98–138; BP diastolic 56–71
[2021-04-02] MEDS: METOCLOPRAMIDE HCL 10 MG/2ML VIAL IV SCH ×4 (05:34→18:41)
[2021-04-02 06:17] LABS: BASOPHILS % 0.1 % (0.0-1.0); EOSINOPHILS # (AUTO) 0.1 (0.0-0.4); EOSINOPHILS % 1.4 % (0.0-6.0); HEMATOCRIT 30.7 % (34.2-44.1); HEMOGLOBIN 10.4 g/dL (12.0-16.0); LYMPHOCYTES # (AUTO) 0.8 (1.0-3.2); LYMPHOCYTES % 10.8 % (18.0-39.1); MEAN CORPUSCULAR HEMOGLOBIN 30.8 pg (28-32); MEAN CORPUSCULAR HGB CONC 33.9 g/dL (31-35); MONOCYTES # (AUTO) 0.3 (0.2-0.8); MONOCYTES % 4.7 % (4.4-11.3); NEUTROPHILS # (AUTO) 5.7 (2.1-6.9); NEUTROPHILS % 81.8 % (38.7-80.0); PLATELET COUNT 183 x10e3/uL (140-360); RED BLOOD COUNT 3.38 x10e6/uL (3.6-5.1); RED CELL DISTRIBUTION WIDTH 16.8 % (11.7-14.4)
[2021-04-02 06:19] LABS: MEAN CORPUSCULAR VOLUME 90.8 fL (81-99)
[2021-04-02 06:43] LABS: ALBUMIN 1.9 g/dL (3.5-5.0); ALBUMIN/GLOBULIN RATIO 0.5 (0.8-2.0); CALCIUM 7.5 mg/dL (8.4-10.2); CREATININE, SERUM 1.14 mg/dL (0.57-1.11)
[2021-04-02] MEDS: MIDODRINE 2.5 MG TAB PO SCH ×3 (08:00→16:00)
[2021-04-02] MEDS: CEFEPIME 1 GM in SODIUM CHLORIDE 0.9% 50ML 50 ML IV SCH (09:23)
[2021-04-02] MEDS: SODIUM BICARBONATE 8.4% SYRING 150 ML in DEXTROSE 5% 1,000 ML IV SCH (09:23)
[2021-04-02] MEDS: SODIUM BICARBONATE 650 MG TAB PO SCH ×2 (09:23→17:00)
[2021-04-02] MEDS ORDERED: POTASSIUM CHLORIDE 20MEQ/100ML 200 ML IV ONE (12:45)
[2021-04-02] MEDS ORDERED: MIDAZOLAM HCL 2 MG/2 ML VIAL ONE ×3 (14:29→20:09)
[2021-04-02] MEDS ORDERED: GENTAMICIN SULFATE 40 MG/ML 2 ML VIAL ONE ×2 (14:29→20:17)
[2021-04-02] MEDS ORDERED: LIDOCAINE HCL 2% LOCAL 20 ML VIAL ONE ×2 (14:30→20:09)
[2021-04-02] MEDS ORDERED: FENTANYL CITRATE/PF 100MCG/2 ML INJ ONE (14:30)
[2021-04-02] MEDS ORDERED: SODIUM CHLORIDE 0.9% 500ML 500 ML ONE (14:30)
[2021-04-02] MEDS ORDERED: Vancomycin IV 1 GM VIAL ONE (14:30)
[2021-04-02] MEDS ORDERED: IOPAMIDOL 300MG/ML 50ML INFUS..BTL IV ONE (14:31)
[2021-04-02] MEDS ORDERED: SODIUM CHLORIDE 0.9% 1000ML 2,000 ML ONE (14:31)
[2021-04-02] MEDS ORDERED: SODIUM CHLORIDE 0.9% 250ML 250 ML ONE (14:31)
[2021-04-02] MEDS: D5NS/KCL 20MEQ 1,000 ML IV SCH (15:33)
[2021-04-02] MEDS ORDERED: DIPHENHYDRAMINE HCL INJ 50 MG/ML VIAL ONE (20:33)
[2021-04-02] MEDS: MIRTAZAPINE 15 MG TAB PO SCH (21:00)
[2021-04-02] MEDS: CEFTRIAXONE 1 GM in SODIUM CHLORIDE 0.9% 50ML 50 ML IV SCH (22:00)
[2021-04-02] MEDS ORDERED: CEFAZOLIN SOD 1 GM/NS 50ML 50 ML IV PRN (22:45)
[2021-04-03] VITALS (9 sets, daily range): BP systolic 115–142; BP diastolic 62–74
[2021-04-03 05:12] LABS: BASOPHILS % 0.2 % (0.0-1.0); EOSINOPHILS # (AUTO) 0.1 (0.0-0.4); EOSINOPHILS % 0.7 % (0.0-6.0); HEMATOCRIT 30.9 % (34.2-44.1); HEMOGLOBIN 10.2 g/dL (12.0-16.0); LYMPHOCYTES % 12.7 % (18.0-39.1); MEAN CORPUSCULAR HEMOGLOBIN 30.1 pg (28-32); MEAN CORPUSCULAR VOLUME 91.2 fL (81-99); MONOCYTES # (AUTO) 0.4 (0.2-0.8); MONOCYTES % 5.4 % (4.4-11.3); NEUTROPHILS # (AUTO) 6.5 (2.1-6.9); NEUTROPHILS % 79.4 % (38.7-80.0); PLATELET COUNT 151 x10e3/uL (140-360); RED BLOOD COUNT 3.39 x10e6/uL (3.6-5.1); RED CELL DISTRIBUTION WIDTH 16.6 % (11.7-14.4)
[2021-04-03 05:37] LABS: ANION GAP 14.4 mmol/L (8-16); CALCIUM 7.2 mg/dL (8.4-10.2); CREATININE, SERUM 1.04 mg/dL (0.57-1.11); POTASSIUM 3.4 mmol/L (3.5-5.1)
[2021-04-03] MEDS: METOCLOPRAMIDE HCL 10 MG/2ML VIAL IV SCH ×3 (06:18→14:19)
[2021-04-03] MEDS: D5NS/KCL 20MEQ 1,000 ML IV SCH ×4 (06:19→21:00)
[2021-04-03] MEDS: MIDODRINE 2.5 MG TAB PO SCH ×3 (07:58→16:00)
[2021-04-03] MEDS: SODIUM BICARBONATE 650 MG TAB PO SCH ×2 (07:59→16:35)
[2021-04-03 11:48] LABS: INR 1.17; PROTHROMBIN TIME 15.6 seconds (11.9-14.5)
[2021-04-03 11:49] LABS: PARTIAL THROMBOPLASTIN TIME 31.3 seconds (23.8-35.5)
[2021-04-03] MEDS ORDERED: ASPIRIN 81 MG CHEW TAB PO ONE (13:00)
[2021-04-03] MEDS: CEFTRIAXONE 1 GM in SODIUM CHLORIDE 0.9% 50ML 50 ML IV SCH (20:59)
[2021-04-03] MEDS: MIRTAZAPINE 15 MG TAB PO SCH (21:00)
[2021-04-04] VITALS (8 sets, daily range): BP systolic 118–143; BP diastolic 64–75
[2021-04-04] MEDS: KETOROLAC TROMETHAMINE 30 MG/ML VIAL IV PRN ×3 (05:53→22:01)
[2021-04-04 06:07] LABS: BASOPHILS % 0.3 % (0.0-1.0); EOSINOPHILS # (AUTO) 0.2 (0.0-0.4); EOSINOPHILS % 2.5 % (0.0-6.0); HEMATOCRIT 31.4 % (34.2-44.1); LYMPHOCYTES # (AUTO) 1.2 (1.0-3.2); LYMPHOCYTES % 12.7 % (18.0-39.1); MEAN CORPUSCULAR HEMOGLOBIN 30.2 pg (28-32); MEAN CORPUSCULAR HGB CONC 31.8 g/dL (31-35); MEAN CORPUSCULAR VOLUME 94.9 fL (81-99); MONOCYTES # (AUTO) 0.4 (0.2-0.8); MONOCYTES % 4.3 % (4.4-11.3); NEUTROPHILS # (AUTO) 7.3 (2.1-6.9); PLATELET COUNT 101 x10e3/uL (140-360); RED BLOOD COUNT 3.31 x10e6/uL (3.6-5.1)
[2021-04-04 06:27] LABS: ANION GAP 14.6 mmol/L (8-16); CALCIUM 7.2 mg/dL (8.4-10.2); CREATININE, SERUM 0.83 mg/dL (0.57-1.11); POTASSIUM 3.6 mmol/L (3.5-5.1)
[2021-04-04] MEDS: MIDODRINE 2.5 MG TAB PO SCH ×3 (08:00→15:58)
[2021-04-04] MEDS: SODIUM BICARBONATE 650 MG TAB PO SCH ×2 (09:00→15:58)
[2021-04-04] MEDS: ASPIRIN 81 MG CHEW TAB PO SCH (09:00)
[2021-04-04] MEDS: D5NS/KCL 20MEQ 1,000 ML IV SCH ×3 (09:56→23:58)
[2021-04-04] MEDS ORDERED: LORAZEPAM INJ 2 MG/ML VIAL IV ONE (16:45)
[2021-04-04] MEDS: MIRTAZAPINE 15 MG TAB PO SCH (19:29)
[2021-04-04] MEDS: MORPHINE SULFATE INJ 2 MG/ML SYR IV PRN (23:54)
[2021-04-05] VITALS: BP 103/66
[2021-04-05 04:00] VITALS: BP 122/71
[2021-04-05] MEDS: MIDODRINE 2.5 MG TAB PO SCH ×2 (08:00→12:00)
[2021-04-05 08:15] VITALS: BP 138/71
[2021-04-05 08:22] VITALS: BP 138/71
[2021-04-05] MEDS: ASPIRIN 81 MG CHEW TAB PO SCH (09:00)
[2021-04-05] MEDS: SODIUM BICARBONATE 650 MG TAB PO SCH (09:00)
[2021-04-05] MEDS: MORPHINE SULFATE INJ 2 MG/ML SYR IV PRN (09:01)
[2021-04-05] MEDS: D5NS/KCL 20MEQ 1,000 ML IV SCH (09:48)
[2021-04-05] MEDS ORDERED: METOPROLOL TARTRATE INJ 1 MG/ML VIAL IV PRN (10:00)
[2021-04-05 11:57] VITALS: BP 109/60
== END 2021-04-05 15:37 | disposition hospice, home (50) | DRG 853 ==
LOC: ER 20:00 → ERHOLD 21:21 → MED/SURG3 03-31 01:51
PROVIDERS: ADMIT Internal Medicine; ATTEND Internal Medicine
PROC: 0JH606Z Insertion of Pacemaker, Dual Chamber into Chest Subcutaneous Tissue and Fascia, Open Approach (ICD-10-PCS; principal; 2021-04-02)
PROC: 02HK3JZ Insertion of Pacemaker Lead into Right Ventricle, Percutaneous Approach (ICD-10-PCS; 2021-04-02)
PROC: 02H63JZ Insertion of Pacemaker Lead into Right Atrium, Percutaneous Approach (ICD-10-PCS; 2021-04-02)
DX: A41.9 Sepsis, unspecified organism (principal); E43 Unspecified severe protein-calorie malnutrition; I63.9 Cerebral infarction, unspecified; N17.9 Acute kidney failure, unspecified; I44.2 Atrioventricular block, complete; Z68.42 Body mass index [BMI] 45.0-49.9, adult; N30.90 Cystitis, unspecified without hematuria; R65.20 Severe sepsis without septic shock; C53.9 Malignant neoplasm of cervix uteri, unspecified; I95.9 Hypotension, unspecified; E66.9 Obesity, unspecified; M19.90 Unspecified osteoarthritis, unspecified site; R41.82 Altered mental status, unspecified; Z86.718 Personal history of other venous thrombosis and embolism; D63.0 Anemia in neoplastic disease; I10 Essential (primary) hypertension; Z86.711 Personal history of pulmonary embolism; Z79.01 Long term (current) use of anticoagulants; E78.5 Hyperlipidemia, unspecified; G47.33 Obstructive sleep apnea (adult) (pediatric); I49.5 Sick sinus syndrome; R62.7 Adult failure to thrive; R53.81 Other malaise; E83.42 Hypomagnesemia; Z66 Do not resuscitate; B96.1 Klebsiella pneumoniae [K. pneumoniae] as the cause of diseases classified elsewhere; E87.6 Hypokalemia
CPT/HCPCS: 33208; 36415; 70450; 71045; 80048; 80053; 81001; 82607; 82728; 82746; 82948; 83036; 83540; 83605; 83735; 83880; 84100; 84443; 84466; 84484; 85025; 85045; 85610; 85730; 86850; 86900; 86920; 87040; 87086; 87186; 93005; 97139; 99152; 99153; 99284; C1769; C1785; C1898; J0692; J0696; J1200; J1580; J1885; J2001; J2060; J2250; J2270; J2405; J2765; J3010; J3370; J3475; J3480; J7030; J7040; J7050; J7070; J7121; P9016